=== PATIENT | female | born 1990 | race Caucasian/White ===

== ENCOUNTER → 2018-07-08 20:38 | Outpatient (CLI) | payer OTHER, SELFPAY | PROVIDERS: Visit Provider Nurse Practitioner Family | DX: J02.9 Acute pharyngitis, unspecified (principal) ==

== ENCOUNTER 2020-02-09 05:01 | Emergency (ER) | payer BC, SELFPAY ==
[2020-02-09 05:02] VITALS: BP 105/58; PULSE 61; RESP 16; TEMP 36.7; O2SAT 98; BMI 19.5
[2020-02-09 05:19] LABS: Microscopic, Urine URINE MICROSCOPIC (MICROSCOPIC)
[2020-02-09 05:21] LABS: Appearance,Urine CLEAR (Clear); Bilirubin,Urine Negative (Negative); Blood, Urine 3+ (Negative); Color,Urine YELLOW (Yellow); Glucose,Urine (UA) Negative (Negative); Ketones,Urine Negative (Negative); Leukocyte Esterase,Urine Negative (Negative); Nitrate,Urine Negative (Negative); Protein,Urine Negative (Negative); Urobilinogen,Urine 0.2 EU/dl (0.2)
[2020-02-09 05:26] LABS: Urine Pregnancy, HCG Qual. Negative (Negative)
[2020-02-09 05:57] LABS: Bacteria,Urine 1+ /lpf; WBC,Urine Occasional #/hpf (0-3)
--- NOTE | 2020-02-09 06:14 | HMH.EDHA ---
ED Disposition Clinical Impression: Headache Qualifiers: Headache type: unspecified Headache chronicity pattern: acute headache Intractability: not intractable Qualified Code(s): R51 - Headache Disposition: Home, Self-Care Condition on Discharge: Good Instructions: DI for Headache Additional Instructions: see pcp for follow up Referrals: Kareem Coyne MD [Primary Care Provider] - - Critical Care Critical Care Time: No Attestation: On 02/09/20, the high probability of a clinically significant, sudden or life threatening deterioration of the following system(s) required my full and direct attention, intervention and personal management. The time I documented below is in addition to time spent performing reported procedures but includes the following listed in this critical care notation. Medical Decision Making - Medical Records Medical records reviewed: Yes: I reviewed the patient's medical records. - Ivan Inquiry Pt receiving controlled substance: No Vital Signs: 02/09/20 05:02 Temperature 98.1 F Temperature Source Oral Pulse Rate [Left Radial] 61 Respiratory Rate 16 Blood Pressure [Right Arm] 105/58 L Blood Pressure Mean [Right Arm] 73 Blood Pressure Source [Right Arm] Automatic Cuff Blood Pressure Position [Right Arm] Sitting 02 Sat by Pulse Oximetry 98 Oxygen Delivery Method Room Air - Lab Data Lab results reviewed: Yes: I reviewed the patient's lab results. Lab Results 02/09/20 05:15: Urine Color Yellow, Urine Appearance Clear, Urine pH 6.0, Ur Specific [place] 1.020, Urine Protein Negative, Urine Glucose (UA) Negative, Urine Ketones Negative, Urine Blood 3+, Urine Nitrate Negative, Urine Bilirubin Negative, Urine Urobilinogen 0.2, Ur Leukocyte Esterase Negative, Urine RBC 5-10, Urine WBC Occasional, Urine Bacteria 1+ 02/09/20 05:15: Urine HCG, Qual Negative Orders (Tests/Meds): ED MEDICATIONS Generic Name Dose Route Start Last Admin Trade Name Freq PRN Reason Stop Dose Admin Sodium Chloride 1,000 mls @ 999 mls/hr 02/09/20 05:30 02/09/20 05:50 Sod Chlor 0.9% 1000ml Bag IV 02/09/20 06:30 999 mls/hr .Q1H1M ROGER Administration Discontinued Medications Generic Name Dose Route Start Last Admin Trade Name Freq PRN Reason Stop Dose Admin Diphenhydramine HCl 25 mg 02/09/20 05:25 02/09/20 05:48 Benadryl 50mg/1ml Vial IV 02/09/20 05:26 25 mg ONCE ONE Administration Ketorolac Tromethamine 30 mg 02/09/20 05:25 02/09/20 05:48 Toradol 30mg/Ml Vial IV 02/09/20 05:26 30 mg ONCE ONE Administration Methylprednisolone Sodium Succinate 125 mg 02/09/20 05:25 02/09/20 05:49 Solu-Medrol 125mg/2ml Vial IV 02/09/20 05:26 125 mg ONCE ONE Administration Promethazine HCl 12.5 mg 02/09/20 05:26 02/09/20 05:49 Phenergan 25mg/Ml 1ml Vial IV 02/09/20 05:27 12.5 mg ONCE ONE Administration Sodium Chloride 25 ml 02/09/20 05:26 02/09/20 05:50 Sod Chlor 0.9% 25ml Bag IV 02/09/20 05:27 25 ml ONCE ONE Administration Headache HPI - General Chief Complaint: Neuro Symptoms/Deficit Stated Complaint: Migraine Time Seen by Provider: 02/09/20 05:40 Mode of Arrival: Ambulatory Source of Information: Patient, Medical Record Limitations: No Limitations Description of Symptoms (Recalled from ER Triage Doc. by RN): pt c/o of a migraine for over 24 hours. pt reports a history of migraines but is no longer on migraine medication due to adverse side effects - History of Present Illness HPI Narrative: pt with acute negron with hx of negron MD Complaint: headache Onset (ago): hour(s) Onset description: gradual Location: diffuse Severity: similar to previous episodes Associated symptoms: none Treatments prior to arrival: none - Related Data Previous Rx's Medication Instructions Recorded Azithromycin [Z-Jono 250mg Tab*] 250 mg PO UD DOSE PK #6 tab 08/10/19 Brompheniramine/Pseudoephed/Dm 5 ml PO Q6HP PRN #240 syrup 08/10/19 [Bromfed Dm Coug
[2020-02-09 06:29] VITALS: BP 99/60; PULSE 62; RESP 14; TEMP 36.7; O2SAT 100
== END 2020-02-09 06:32 | disposition home or self-care (01) ==
PROVIDERS: Emergency Provider Emergency Medicine; PCP Internal Medicine Adolescent Medicine
DX: G43.909 Migraine, unspecified, not intractable, without status migrainosus (principal); F17.210 Nicotine dependence, cigarettes, uncomplicated
CPT/HCPCS: 81001; 81025; 96365; 96375; 99282

== ENCOUNTER 2020-09-05 19:08 | Emergency (ER) | payer BC, SELFPAY ==
[2020-09-05 20:12] VITALS: BP 119/81; PULSE 69; RESP 16; TEMP 36.7; O2SAT 100; BMI 20.3
--- NOTE | 2020-09-05 20:19 | HMH.EDUTC ---
[facility] [place] Disposition Clinical Impression: Influenza B, Viral syndrome Disposition: Home, Self-Care Condition on Discharge: Good Instructions: Influenza, DI for Influenza -- Adult Additional Instructions: Drink plenty of fluids. Take tylenol for pain or fever. Return if you begin to have difficulty breathing. Follow up with your regular doctor. GO TO THE ER FOR ANY WORSENING SYMPTOMS Take the tamiflu and other medications as directed. Prescriptions: Ondansetron [Zofran 4mg ODT] 4 mg PO Q8HP PRN #12 tab.rapdis PRN Reason: Nausea Transmission Status: Received by [facility] Oseltamivir Phosphate [Tamiflu 75mg Capsule] 75 mg PO BID #10 cap Transmission Status: Received by [id number] Referrals: Kareem Coyne MD [Primary Care Provider] - Forms: Work/School Release Time of Disposition: 20:38 Medical Decision Making - Medical Records Medical records reviewed: No: I reviewed the patient's medical records. - Ivan Inquiry Pt receiving controlled substance: No Vital Signs: 09/05/20 20:12 09/05/20 20:45 Temperature 98.0 F 98.0 F Temperature Source Oral Oral Pulse Rate 69 Pulse Rate [Right Brachial] 69 Respiratory Rate 16 16 Blood Pressure 119/81 Blood Pressure [Right Arm] 119/81 Blood Pressure Mean [Right Arm] 93 Blood Pressure Source [Right Arm] Automatic Cuff Blood Pressure Position [Right Arm] Sitting 02 Sat by Pulse Oximetry 100 Oxygen Delivery Method Room Air Room Air Orders (Tests/Meds): ED MEDICATIONS Discontinued Medications Generic Name Dose Route Start Last Admin Trade Name Freq PRN Reason Stop Dose Admin Acetaminophen 1,000 mg 09/05/20 20:19 09/05/20 20:26 Acetaminophen 500mg Tab PO 09/05/20 20:20 1,000 mg ONCE ONE Administration Ondansetron HCl 4 mg 09/05/20 20:19 09/05/20 20:26 Ondansetron 4mg Odt SL 09/05/20 20:20 4 mg ONCE ONE Administration Oseltamivir Phosphate 75 mg 09/05/20 21:00 09/05/20 20:55 Oseltamivir 75mg Capsule PO 09/19/20 20:59 75 mg BID ROGER Administration ORDERS Category Date Time Status Covid-19 Nasal PCR Sendout P&C Routine Lab 09/05/20 20:09 Received [facility] [place] HPI - General Stated complaint: Headache; chills; nausea Time Seen by Provider: 09/05/20 20:19 Mode of Arrival: Family Vehicle Source of Information: Patient Limitations: No Limitations Description of Symptoms (Recalled from Triage Doc. by RN): headache,chills, nausea and cough; would like a covid test HEENT Symptoms (Recalled from RN notes): Yes Resp Symptoms (Recalled from RN notes): Yes Skin Symptoms (Recalled from RN notes): No MS Symptoms (Recalled from RN notes): No Functional Status (Recalled from RN notes): wnl - History of Present Illness Provider Complaint: She states that she started having a nagging cough yesterday. This afternoon she began to chill, have nausea, body aches and her cough has got worse. She denies any known exposure to covid or influenza. - Related Data Previous Rx's Medication Instructions Recorded Azithromycin [Z-Jono 250mg Tab*] 250 mg PO UD DOSE PK #6 tab 08/10/19 Brompheniramine/Pseudoephed/Dm 5 ml PO Q6HP PRN #240 syrup 08/10/19 [Bromfed Dm Cough Syrup] Oseltamivir Phosphate [Tamiflu 75 mg PO BID #10 cap 08/10/19 75mg Capsule] predniSONE [Deltasone 10mg tablet] 10 mg PO BID 3 Days #6 tab 08/10/19 valacyclovir 500 mg tablet 500 mg PO DAILY #90 tab 08/23/19 metronidazole 500 mg tablet 500 mg PO BID 5 Days #10 tab 06/16/20 metronidazole 500 mg tablet See Rx Instructions .ROUTE 06/20/20 .COMPLEX #10 tab Ondansetron [Zofran 4mg ODT] 4 mg PO Q8HP PRN #12 tab.rapdis 09/05/20 Oseltamivir Phosphate [Tamiflu 75 mg PO BID #10 cap 09/05/20 75mg Capsule] Allergies Allergy/AdvReac Type Severity Reaction Status Date / Time No Known Allergies Allergy Verified 08/28/18 21:58 - Worker's Comp Is this a Worker's Comp case?: No [facility] History - Hepatitis
[2020-09-05 20:45] VITALS: BP 119/81; PULSE 69; RESP 16; TEMP 36.7; O2SAT 100
[2020-09-05 21:20] LABS: UTC Influenza A Antigen Negative (Negative)
[2020-09-05 21:21] LABS: UTC Influenza B Antigen Positive (Negative)
[2020-09-07 11:31] LABS: Covid-19 Nasal PCR Sendout P&C NEGATIVE
== END 2020-09-05 20:58 | disposition home or self-care (01) ==
PROVIDERS: Emergency Provider Nurse Practitioner Family; PCP Internal Medicine Adolescent Medicine
DX: J10.1 Influenza due to other identified influenza virus with other respiratory manifestations (principal); Z20.822 Contact with and (suspected) exposure to COVID-19; F17.210 Nicotine dependence, cigarettes, uncomplicated
CPT/HCPCS: 87804; 99202; G0463; U0004

== ENCOUNTER 2021-02-10 10:38 | Emergency (ER) | payer BC, SELFPAY ==
[2021-02-10 10:38] VITALS: BP 116/77; PULSE 63; RESP 16; TEMP 36.6; O2SAT 97
--- NOTE | 2021-02-10 11:15 | HMH.EDUTC ---
[facility] [place] Clinical Impression: Migraine headache Qualifiers: Migraine type: without aura Status migrainosus presence: without status migrainosus Intractability: not intractable Qualified Code(s): G43.009 - Migraine without aura, not intractable, without status migrainosus Disposition: Home, Self-Care Condition on Discharge: Good Instructions: DI for Migraine Additional Instructions: Follow up with PCP to discuss preventative meds and abortive meds Prescriptions: Promethazine HCl 12.5 mg PO Q6HP PRN 10 Days #20 tab PRN Reason: Vomiting Transmission Status: Pending to [facility] Ubrogepant [Ubrelvy] 100 mg PO DAILY PRN 30 Days #10 tab PRN Reason: Migraine Headache Transmission Status: Sent to [facility] Referrals: Kareem Coyne MD [Primary Care Provider] - Time of Disposition: 11:32 Medical Decision Making - Ivan Inquiry Pt receiving controlled substance: No Vital Signs: 02/10/21 10:38 Temperature 97.8 F Temperature Source Oral Pulse Rate [Apical] 63 Respiratory Rate 16 Blood Pressure [Right Arm] 116/77 Blood Pressure Mean [Right Arm] 90 Blood Pressure Source [Right Arm] Automatic Cuff Blood Pressure Position [Right Arm] Supine 02 Sat by Pulse Oximetry 97 Oxygen Delivery Method Room Air Orders (Tests/Meds): ED MEDICATIONS Discontinued Medications Generic Name Dose Route Start Last Admin Trade Name Freq PRN Reason Stop Dose Admin Ketorolac Tromethamine 60 mg 02/10/21 11:22 Ketorolac 60mg/2ml Vial IM 02/10/21 11:23 ONCE ONE [facility] [place] - General Stated complaint: migraine Time Seen by Provider: 02/10/21 11:15 Mode of Arrival: Ambulatory Source of Information: Patient Limitations: No Limitations HEENT Symptoms (Recalled from RN notes): No Resp Symptoms (Recalled from RN notes): No Skin Symptoms (Recalled from RN notes): No MS Symptoms (Recalled from RN notes): No Functional Status (Recalled from RN notes): na - History of Present Illness Provider Complaint: Migraine X 2 days. Pain right jew, nausea/vomiting, photophobia. History of frequent migraines. Not currently on prophylaxis. Has tried triptans in the past that didn't help much. Has tried Excedrin, Tylenol and Motrin over the past two days. Onset (ago): day(s) (2) Location: head Relieving factors: none Exacerbating factors: none Associated symptoms: headaches Treatments prior to arrival: NSAID - Related Data Previous Rx's Medication Instructions Recorded Promethazine HCl 12.5 mg PO Q6HP PRN 10 Days #20 tab 02/10/21 Ubrogepant [Ubrelvy] 100 mg PO DAILY PRN 30 Days #10 tab 02/10/21 Allergies Allergy/AdvReac Type Severity Reaction Status Date / Time No Known Allergies Allergy Verified 08/28/18 21:58 - Worker's Comp Is this a Worker's Comp case?: No [facility] History - Hepatitis A Screen Drug use history?: No High risk sexual behaviors?: No History of sexually transmitted infection?: No Currently employed?: No Childcare worker?: No Do you have indoor plumbing?: Yes Do you have electricity?: Yes Attestation statement:: This patient has been screened for Hepatitis A risk factors. I have reviewed the patient's past medical history: No Medical History: Denies:: Cancer, Diabetes Mellitus Type 1, Diabetes Mellitus Type 2, MRSA Other Medical History: Reports: Other (herpes) Amputation: No - Social History Smoking Status: Current every day smoker Tobacco Type: cigarettes # Packs/Day (cigarettes): 0 Alcohol Intake: never Occupational Status: employed Household Members: family Family Hx:: No significant family history ROS Obtained: Yes All systems reviewed & no additional complaints - Constitutional Constitutional: Reports headache(s) - Gastrointestinal Gastrointestingal: Reports: nausea, vomiting Physical Exam - General General appearance: alert, in no apparent distress - Head Head exam: normocephalic - Eye Eye exam: Present: PERRL
[2021-02-10 11:48] VITALS: BP 116/77; PULSE 63; RESP 16; TEMP 36.6; O2SAT 99
== END 2021-02-10 11:49 | disposition home or self-care (01) ==
PROVIDERS: Emergency Provider Physician Assistant; PCP Internal Medicine Adolescent Medicine
DX: G43.009 Migraine without aura, not intractable, without status migrainosus (principal); F17.210 Nicotine dependence, cigarettes, uncomplicated
CPT/HCPCS: 99202; G0463

== ENCOUNTER 2021-07-19 12:39 | Emergency (ER) | payer OTHER, BC, SELFPAY ==
[2021-07-19 12:40] VITALS: BP 105/74; PULSE 66; RESP 20; TEMP 36.4; O2SAT 95; BMI 21.9
[2021-07-19 13:11] LABS: Basophils % 0.6 % (0.1-2.0); Eosinophils # 0.1 K/mm3 (0.0-0.4); Eosinophils % 0.9 % (0.1-12.0); Hemoglobin 14.8 g/dL (12.2-16.2); Lymphocytes # 1.3 K/mm3 (0.7-4.5); Lymphocytes % 20.9 % (10-50); Mean Corpuscular HGB Conc 34.5 g/dL (31.8-35.4); Mean Corpuscular Hemoglobin 32.2 pg (27.0-31.2); Mean Corpuscular Volume 93.4 fl (81-99); Mean Platelet Volume 8.7 fl (7.4-10.4); Monocytes # 0.3 K/mm3 (0.1-1.0); Monocytes % 4.2 % (1.7-9.3); Neutrophils # 4.6 K/mm3 (1.8-7.8); Neutrophils % 73.5 % (37.0-80.0); Platelet Count 209 K/mm3 (142-424); Red Cell Distribution Width 12.7 % (11.5-17.5); White Blood Count 6.2 K/mm3 (4.8-10.8)
[2021-07-19 13:30] VITALS: BP 94/65; PULSE 60; O2SAT 98
--- NOTE | 2021-07-19 13:38 | HMH.EDGENADL ---
ED Disposition Clinical Impression: Migraine Qualifiers: Migraine type: without aura Status migrainosus presence: without status migrainosus Intractability: not intractable Qualified Code(s): G43.009 - Migraine without aura, not intractable, without status migrainosus Disposition: Home, Self-Care Condition on Discharge: Good Instructions: Migraine -- Adult Referrals: Everett Foley MD [Primary Care Provider] - Time of Disposition: 15:18 - Critical Care Critical Care Time: No Attestation: On 07/19/21, the high probability of a clinically significant, sudden or life threatening deterioration of the following system(s) required my full and direct attention, intervention and personal management. The time I documented below is in addition to time spent performing reported procedures but includes the following listed in this critical care notation. Medical Decision Making - Medical Records Medical records reviewed: Yes: I reviewed the patient's medical records. - Ivan Inquiry Pt receiving controlled substance: No Vital Signs: 07/19/21 12:40 Temperature 97.6 F Temperature Source Oral Pulse Rate [Left Radial] 66 Respiratory Rate 20 Blood Pressure [Right Arm] 105/74 L Blood Pressure Mean [Right Arm] 84 Blood Pressure Source [Right Arm] Automatic Cuff Blood Pressure Position [Right Arm] Sitting 02 Sat by Pulse Oximetry 95 Oxygen Delivery Method Room Air - Lab Data Lab Results 07/19/21 12:55: WBC 6.2, RBC 4.60, Hgb 14.8, Hct 43.0, MCV 93.4, MCH 32.2 H, MCHC 34.5, RDW 12.7, Plt Count 209, MPV 8.7, Neut % (Auto) 73.5, Lymph % (Auto) 20.9, [place] % (Auto) 4.2, Eos % (Auto) 0.9, Baso % (Auto) 0.6, Neut # (Auto) 4.6, Lymph # (Auto) 1.3, [place] # (Auto) 0.3, Eos # (Auto) 0.1, Baso # (Auto) 0.0 Result diagrams: 07/19/21 12:55 Orders (Tests/Meds): ED MEDICATIONS Generic Name Dose Route Start Last Admin Trade Name Freq PRN Reason Stop Dose Admin Sodium Chloride 1,000 mls @ 999 mls/hr 07/19/21 13:15 07/19/21 13:32 Sod Chlor 0.9% 1000ml Bag IV 07/19/21 14:15 999 mls/hr .Q1H1M ROGER Administration Discontinued Medications Generic Name Dose Route Start Last Admin Trade Name Kannan PRN Reason Stop Dose Admin Diphenhydramine HCl 25 mg 07/19/21 13:04 07/19/21 13:31 Diphenhydramine 50mg/Ml Vial IV 07/19/21 13:05 25 mg ONCE ONE Administration Ketorolac Tromethamine 30 mg 07/19/21 13:04 07/19/21 13:32 Ketorolac 30mg/Ml Vial IV 07/19/21 13:05 30 mg ONCE ONE Administration Metoclopramide HCl 10 mg 07/19/21 13:04 07/19/21 13:32 Metoclopramide Hcl 10mg/2ml Vial IV 07/19/21 13:05 10 mg ONCE ONE Administration Prochlorperazine Edisylate 10 mg 07/19/21 13:04 07/19/21 13:32 Prochlorperazine 10mg/2ml Vial IV 07/19/21 13:05 10 mg ONCE ONE Administration Medical Decision Narrative: 30-year-old female presents to the emergency department with chief complaint of migraine headache. The history of frequent migraines, and normally responds to her abortive medication at home, but did not get any relief today. Patient states that this headache is classic for her usual migraines and she normally gets relief with a migraine cocktail in the emergency department. On arrival, she is afebrile and hemodynamically stable and appears uncomfortable and in tears and is having sensitivity to the lights and noises of the emergency department. Patient will have a CBC drawn, and will be treated with a 1 L LR bolus, Toradol, Reglan, and Benadryl while in the emergency department. On reevaluation, CBC is unremarkable, no anemia or leukocytosis. Patient had marked improvement after administration of medications and approximately 2 hours of rest in the emergency department. At this time she is ready to go home. Patient was discharged in stable condition with follow-up with her primary care physician, and she has been on this plan. General Adult HPI - General Chief complaint: Headache
[2021-07-19 15:30] VITALS: BP 94/65; PULSE 60; RESP 18; TEMP 36.4; O2SAT 98
== END 2021-07-19 15:31 | disposition home or self-care (01) ==
PROVIDERS: Emergency Provider Emergency Medicine; PCP Internal Medicine Adolescent Medicine
DX: G43.009 Migraine without aura, not intractable, without status migrainosus (principal); F17.210 Nicotine dependence, cigarettes, uncomplicated
CPT/HCPCS: 85025; 96365; 96375; 99282

== ENCOUNTER 2021-10-20 09:06 | Emergency (ER) | payer BC, SELFPAY ==
[2021-10-20 09:26] VITALS: BP 111/73; PULSE 57; RESP 14; TEMP 36.5; O2SAT 97; BMI 21.1
--- NOTE | 2021-10-20 10:29 | HMH.EDUTC ---
[facility] [place] Disposition Clinical Impression: Migraine Qualifiers: Migraine type: unspecified Status migrainosus presence: without status migrainosus Intractability: not intractable Qualified Code(s): G43.909 - Migraine, unspecified, not intractable, without status migrainosus Disposition: Home, Self-Care Condition on Discharge: Good Instructions: DI for Migraine Additional Instructions: Drink plenty of fluids. Take your normal regimen for migraines. Do not do that until later this evening or preferrably tomorrow since you had the shots here though. Take the medications as directed. Follow up with your regular doctor. GO TO THE ER FOR ANY WORSENING SYMPTOMS Prescriptions: Ibuprofen [Ibuprofen 800mg Tablet] 800 mg PO Q8HP PRN #30 tab PRN Reason: Moderate Pain Transmission Status: [facility] Promethazine HCl [Phenergan 25mg tab] 25 mg PO Q6H PRN #20 tab PRN Reason: Nausea And Vomiting Transmission Status: [facility] Referrals: Everett Foley MD [Primary Care Provider] - Time of Disposition: 11:20 Medical Decision Making - Medical Records Medical records reviewed: No: I reviewed the patient's medical records. - Ivan Inquiry Pt receiving controlled substance: No Vital Signs: 10/20/21 09:26 10/20/21 11:39 Temperature 97.7 F 97.7 F Temperature Source Oral Pulse Rate 57 L Pulse Rate [Left] 57 L Respiratory Rate 14 14 Blood Pressure 111/73 Blood Pressure [Right Arm] 111/73 Blood Pressure Mean [Right Arm] 85 02 Sat by Pulse Oximetry 97 Orders (Tests/Meds): ED MEDICATIONS Discontinued Medications Generic Name Dose Route Start Last Admin Trade Name Freq PRN Reason Stop Dose Admin Ketorolac Tromethamine 60 mg 10/20/21 10:29 10/20/21 10:49 Ketorolac 60mg/2ml Vial IM 10/20/21 10:30 60 mg ONCE ONE Administration Methylprednisolone Sodium Succinate 125 mg 10/20/21 10:29 10/20/21 10:48 Methylprednisolone Sod Succ 125mg Vial IM 10/20/21 10:30 125 mg ONCE ONE Administration Promethazine HCl 25 mg 10/20/21 10:30 10/20/21 10:48 Promethazine Hcl 25mg/Ml 1ml Vial IM 10/20/21 10:31 25 mg ONCE ONE Administration [facility] [place] HPI - General Stated complaint: migraine Time Seen by Provider: 10/20/21 09:45 Mode of Arrival: Ambulatory Source of Information: Patient Limitations: No Limitations Description of Symptoms (Recalled from Triage Doc. by RN): pt c/o a migraine, n/v, and photophobia. pt has a hx of migraines and says this feels the same. pt has taken her nertec without any relief. ongoing since yesterday am. HEENT Symptoms (Recalled from RN notes): Yes Resp Symptoms (Recalled from RN notes): No Skin Symptoms (Recalled from RN notes): No MS Symptoms (Recalled from RN notes): No Functional Status (Recalled from RN notes): wnl - History of Present Illness Provider Complaint: She c/o migraine headache since yesterday. - Related Data Previous Rx's Medication Instructions Recorded Promethazine HCl 12.5 mg PO Q6HP PRN 10 Days #20 tab 02/10/21 Ubrogepant [Ubrelvy] 100 mg PO DAILY PRN 30 Days #10 tab 02/10/21 valacyclovir 500 mg tablet 500 mg PO DAILY #30 tab 03/20/21 Ibuprofen [Ibuprofen 800mg 800 mg PO Q8HP PRN #30 tab 10/20/21 Tablet] Promethazine HCl [Phenergan 25mg 25 mg PO Q6H PRN #20 tab 10/20/21 tab] Allergies Allergy/AdvReac Type Severity Reaction Status Date / Time No Known Allergies Allergy Verified 08/28/18 21:58 - Worker's Comp Is this a Worker's Comp case?: No [facility] History - Hepatitis A Screen Drug use history?: No High risk sexual behaviors?: No History of sexually transmitted infection?: No Currently employed?: No Childcare worker?: No Do you have indoor plumbing?: Yes Do you have electricity?: Yes Attestation statement:: This patient has been screened for Hepatitis A risk factors. I have reviewed the patient's past medical history: Yes Medical Hi
[2021-10-20 11:39] VITALS: BP 111/73; PULSE 57; RESP 14; TEMP 36.5
== END 2021-10-20 11:39 | disposition home or self-care (01) ==
PROVIDERS: Emergency Provider Nurse Practitioner Family; PCP Internal Medicine Adolescent Medicine
DX: G43.909 Migraine, unspecified, not intractable, without status migrainosus (principal); F17.210 Nicotine dependence, cigarettes, uncomplicated
CPT/HCPCS: 99202; G0463

== ENCOUNTER 2021-11-04 17:36 | Emergency (ER) | payer BC, SELFPAY ==
[2021-11-04 17:37] VITALS: BP 132/86; PULSE 64; RESP 20; TEMP 36.7; O2SAT 100; BMI 21.1
[2021-11-04 18:18] LABS: Basophils # 0.1 K/mm3 (0-0.2); Basophils % 1.4 % (0.1-2.0); Eosinophils # 0.1 K/mm3 (0.0-0.4); Eosinophils % 1.4 % (0.1-12.0); Hemoglobin 13.5 g/dL (12.2-16.2); Lymphocytes # 1.6 K/mm3 (0.7-4.5); Lymphocytes % 21.5 % (10-50); Mean Corpuscular HGB Conc 33.7 g/dL (31.8-35.4); Mean Corpuscular Hemoglobin 31.7 pg (27.0-31.2); Mean Platelet Volume 9.1 fl (7.4-10.4); Monocytes # 0.4 K/mm3 (0.1-1.0); Monocytes % 5.8 % (1.7-9.3); Neutrophils # 5.2 K/mm3 (1.8-7.8); Neutrophils % 69.9 % (37.0-80.0); Platelet Count 203 K/mm3 (142-424); Red Blood Count 4.26 M/mm3 (4.20-5.40); Red Cell Distribution Width 12.9 % (11.5-17.5); White Blood Count 7.5 K/mm3 (4.8-10.8)
[2021-11-04 18:19] LABS: Chloride 104 mmol/L (98-107); Potassium 3.9 mmoL/L (3.5-5.1); Sodium 133 mmol/L (136-145)
[2021-11-04 18:21] LABS: HCG Qualitative, Serum Negative (Negative)
[2021-11-04 18:22] LABS: Anion Gap 8.9 mEq/L (5-15); Blood Urea Nitrogen 11 mg/dl (7-17); Calcium 8.2 mg/dl (8.4-10.2); Carbon Dioxide 24 mmol/L (22.0-30.0); Creatinine Clearance Estimated 131 mL/min (50-200); Estimated Glomerular Filt Rate 117 ml/min (>60); GFR (African American) 141 ML/MIN (>60); Glucose 90 mg/dl (74-100)
--- NOTE | 2021-11-04 18:49 | HMH.EDGENADL ---
ED Disposition Clinical Impression: Headache Disposition: Home, Self-Care Condition on Discharge: Good Instructions: DI for Migraine Referrals: Everett Foley MD [Primary Care Provider] - - Critical Care Critical Care Time: No Attestation: On 11/04/21, the high probability of a clinically significant, sudden or life threatening deterioration of the following system(s) required my full and direct attention, intervention and personal management. The time I documented below is in addition to time spent performing reported procedures but includes the following listed in this critical care notation. Medical Decision Making - Ivan Inquiry Pt receiving controlled substance: No Vital Signs: 11/04/21 17:37 Temperature 98.0 F Temperature Source Oral Pulse Rate [Right Radial] 64 Respiratory Rate 20 Blood Pressure [Right Arm] 132/86 Blood Pressure Mean [Right Arm] 101 Blood Pressure Source [Right Arm] Automatic Cuff Blood Pressure Position [Right Arm] Sitting 02 Sat by Pulse Oximetry 100 Oxygen Delivery Method Room Air - Lab Data Lab Results 11/04/21 17:55: WBC 7.5, RBC 4.26, Hgb 13.5, Hct 40.0, MCV 94.0, MCH 31.7 H, MCHC 33.7, RDW 12.9, Plt Count 203, MPV 9.1, Neut % (Auto) 69.9, Lymph % (Auto) 21.5, [place] % (Auto) 5.8, Eos % (Auto) 1.4, Baso % (Auto) 1.4, Neut # (Auto) 5.2, Lymph # (Auto) 1.6, [place] # (Auto) 0.4, Eos # (Auto) 0.1, Baso # (Auto) 0.1 11/04/21 17:55: Sodium 133 L, Potassium 3.9, Chloride 104, Carbon Dioxide 24, Anion Gap 8.9, BUN 11, Creatinine 0.60, Estimated Creat Clear 131, Estimated GFR 117, Est GFR ( Amer) 141, Glucose 90, Calcium 8.2 L 11/04/21 17:55: Serum HCG, Qual Negative Result diagrams: 11/04/21 17:55 11/04/21 17:55 Orders (Tests/Meds): ED MEDICATIONS Generic Name Dose Route Start Last Admin Trade Name Freq PRN Reason Stop Dose Admin Lactated Ringer's 1,000 mls @ 999 mls/hr 11/04/21 18:15 Lactated Ringer's 1000 Ml Bag IV 11/04/21 19:15 .Q1H1M ROGER Discontinued Medications Generic Name Dose Route Start Last Admin Trade Name Kannan PRKasey Reason Stop Dose Admin Dexamethasone Sodium Phosphate 8 mg 11/04/21 18:11 11/04/21 18:39 Dexamethasone 4mg/Ml 1ml Vial IV 11/04/21 18:12 8 mg ONCE ONE Administration Diphenhydramine HCl 25 mg 11/04/21 18:11 11/04/21 18:39 Diphenhydramine 50mg/Ml Vial IV 11/04/21 18:12 25 mg ONCE ONE Administration Magnesium Sulfate 1 gm/ Sodium 52 mls @ 100 mls/hr 11/04/21 18:11 11/04/21 18:39 Chloride IV 11/04/21 18:42 100 mls/hr ONCE ONE Administration Ketorolac Tromethamine 15 mg 11/04/21 18:11 11/04/21 18:39 Ketorolac 30mg/Ml Vial IV 11/04/21 18:12 15 mg ONCE ONE Administration Ondansetron HCl 4 mg 11/04/21 18:11 11/04/21 18:39 Ondansetron 4mg/2ml Vial IV 11/04/21 18:12 4 mg ONCE ONE Administration Medical Decision Narrative: DDx includes but not limited to migraine headache, tension type headache, dehydration, electrolyte abnormality. HDS, distress 2/2 headache but distractable and cooperative with exam and interview, GCS 15, moving bilateral arms and legs spontaneously and with normal gross sensation and strength. Labs including cbc, cmp, test were without acute and actionable findings. Given IV migraine cocktail here in the ED, and patient states headache is significantly improved on reassessment. She states she can follow up with PCP within a few days and will call pharmacy tomorrow regarding her chronic migraine medication. She remains HDS, GCS 15. Given ED return precautions. General Adult HPI - General Chief complaint: Headache Stated complaint: migraine Time Seen by Provider: 11/04/21 18:05 Mode of Arrival: Ambulatory Source of Information: Patient Limitations: No Limitations Description of Symptoms (Recalled from ER Triage Doc. by RN): Pt c/o migraine x3 days. Advises she has been out of her medication (Neurtec). States that pain is no different than her typ
[2021-11-04 19:48] VITALS: BP 125/70; PULSE 79; RESP 19; TEMP 36.8; O2SAT 98
== END 2021-11-04 20:11 | disposition home or self-care (01) ==
PROVIDERS: Emergency Provider Student in an Organized Health Care Education/Training Program; PCP Internal Medicine Adolescent Medicine
DX: G43.019 Migraine without aura, intractable, without status migrainosus (principal); Z79.899 Other long term (current) drug therapy; F17.210 Nicotine dependence, cigarettes, uncomplicated
CPT/HCPCS: 80048; 84703; 85025; 96365; 96375; 99284; J2405

== ENCOUNTER 2022-06-19 07:04 | Emergency (ER) | payer BC, SELFPAY ==
[2022-06-19 07:05] VITALS: BP 116/82; PULSE 87; RESP 18; TEMP 36.7; O2SAT 99; BMI 20.3
--- NOTE | 2022-06-19 07:14 | PC.NURSE ---
DR. CHEEMA AT BEDSIDE
--- NOTE | 2022-06-19 07:18 | HMH.EDURI ---
Discharge Plan Disposition Patient Disposition: Home, Self-Care Prescriptions Prescriptions: New prednisone [prednisone] 20 mg tablet 20 mg PO BID Qty: 10 0RF cephalexin [cephalexin] 500 mg capsule 500 mg PO TID Qty: 30 0RF No Action valacyclovir 500 mg tablet 500 mg PO DAILY Qty: 30 11RF metronidazole 500 mg tablet See Rx Instructions .ROUTE .COMPLEX Qty: 14 2RF Dose Instruction: Take 1 tablet by mouth twice daily Rx Instructions: Take 1 tablet by mouth twice daily ubrogepant 100 MG tablet 100 mg PO DAILY PRN (Reason: Migraine Headache) 30 Days Qty: 10 0RF promethazine 12.5 MG tablet 12.5 mg PO Q6HP PRN (Reason: Vomiting) 10 Days Qty: 20 0RF ibuprofen 800 MG tablet 800 mg PO Q8HP PRN (Reason: Moderate Pain) Qty: 30 0RF promethazine 25 MG tablet 25 mg PO Q6H PRN (Reason: Nausea And Vomiting) Qty: 20 0RF Referrals Follow up/Referrals: Kareem Coyne MD [Primary Care Provider] - See instructions Clinical Impressions Clinical Impression: Pharyngitis, Sinusitis Instructions Patient Instructions: DI for Sinusitis Discharge ED Provider: Riccardo David URI/Sore Throat HPI General Chief Complaint: Upper Respiratory Infection Stated Complaint: Sore throat, sinus pressure Time Seen by Provider: 06/19/22 07:18 Mode of Arrival: Ambulatory Source of Information: Patient and Medical Record Limitations: No Limitations Description of Symptoms (Recalled from ER Triage Doc. by RN): PT REPORTS SORE THROAT AND SINUS PRESSURE SINCE FRIDAY History of Present Illness HPI Narrative: ear and sinus pressure over the last few days Complaint: sore throat, nasal congestion and sinus pain Onset (ago): day(s) Duration: intermittent Severity: moderate Able to tolerate fluids by mouth: Yes Associated symptoms: headache Treatments prior to arrival: none Related Data Previous Rx's Medication Instructions Recorded promethazine 12.5 mg tablet 12.5 mg PO Q6HP PRN Vomiting 10 02/10/21 days #20 tabs ubrogepant 100 mg tablet 100 mg PO DAILY PRN Migraine 02/10/21 Headache 30 days #10 tabs valacyclovir 500 mg tablet 500 mg PO DAILY #30 tabs 03/20/21 ibuprofen 800 mg tablet 800 mg PO Q8HP PRN Moderate Pain 10/20/21 #30 tabs promethazine 25 mg tablet 25 mg PO Q6H PRN Nausea And 10/20/21 Vomiting #20 tabs metronidazole 500 mg tablet See Rx Instructions .Route 03/18/22 .COMPLEX #14 tabs cephalexin 500 mg capsule 500 mg PO TID #30 caps 06/19/22 prednisone 20 mg tablet 20 mg PO BID #10 tabs 06/19/22 Allergies Allergy/AdvReac Type Severity Reaction Status Date / Time sumatriptan Allergy Verified 06/19/22 07:19 [facility] Medical History (Updated 06/19/22 @ 08:08 by Riccardo David MD) Migraine Family History (Updated 06/19/22 @ 07:18 by Zina Samuel RN) No significant family history Social History (Updated 06/19/22 @ 07:18 by Zina Samuel RN) Smoking Status: Current every day smoker tobacco type: cigarettes packs per day: 0 alcohol intake: never current occupational status: employed Travel in the last 8 weeks: None household members: family ROS Obtained: Yes All systems reviewed & no additional complaints except as documented Constitutional Constitutional: Denies fever(s) and Reports headache(s) Eyes Eyes: Denies diplopia ENT Ears, Nose, Mouth, and Throat: Reports otalgia and Reports headache(s) Neurologic Neurologic: Reports headache(s) Physical Exam General General appearance: alert Head Head exam: normocephalic Eye Eye exam: Present PERRL and EOMI ENT ENT exam: Present mucous membranes moist Expanded ENT Exam TM/Canal exam: Bilateral TM: effusion Throat exam: Present tonsillar erythema Neck Neck exam: Present full ROM and trachea midline; Absent tenderness Respiratory Respiratory exam: Absent respiratory distress Cardiovascular Cardiovascular exam: Present regular rate Abdominal Exam Abdominal exam: Present
[2022-06-19 07:25] LABS: Coronavirus 19, PCR Not Detected (NotDetected); Influenza A, PCR Not Detected (NotDetected); Influenza B, PCR Not Detected (NotDetected)
--- NOTE | 2022-06-19 07:30 | PC.NURSE ---
PLAN OF CARE DISCUSSED, IV STARTED AND BLOOD COLLECTED PT TOLERATED WELL. NO NEEDS AT THIS TIME
[2022-06-19 07:37] LABS: Strep Scrn Group A (Rapid) Negative (Negative)
[2022-06-19 07:43] LABS: Basophils # 0.1 K/mm3 (0-0.2); Basophils % 0.5 % (0.1-2.0); Eosinophils # 0.2 K/mm3 (0.0-0.4); Eosinophils % 1.8 % (0.1-12.0); Hematocrit 44.1 % (37.0-47.0); Hemoglobin 14.9 g/dL (12.2-16.2); Lymphocytes # 1.4 K/mm3 (0.7-4.5); Lymphocytes % 14.4 % (10-50); Mean Corpuscular HGB Conc 33.7 g/dL (31.8-35.4); Mean Corpuscular Hemoglobin 31.5 pg (27.0-31.2); Mean Corpuscular Volume 93.5 fl (81-99); Mean Platelet Volume 9.1 fl (7.4-10.4); Monocytes # 0.5 K/mm3 (0.1-1.0); Monocytes % 5.1 % (1.7-9.3); Neutrophils # 7.4 K/mm3 (1.8-7.8); Neutrophils % 78.2 % (37.0-80.0); Platelet Count 220 K/mm3 (142-424); Red Blood Count 4.72 M/mm3 (4.20-5.40); White Blood Count 9.4 K/mm3 (4.8-10.8)
--- NOTE | 2022-06-19 07:56 | PC.NURSE ---
checked on pt at this time, gave pt warm blanket. Pt states no other needs, will continue to monitor
[2022-06-19 08:00] VITALS: BP 94/67; PULSE 71; RESP 16; O2SAT 97
--- NOTE | 2022-06-19 08:20 | PC.NURSE ---
pt medicated per MAR, lights turned off in room for comfort. Pt states no needs at this time, will continue to monitor
[2022-06-19 08:23] LABS: Chloride 105 mmol/L (98-107); Potassium 4.3 mmoL/L (3.5-5.1); Sodium 138 mmol/L (136-145)
[2022-06-19 08:26] LABS: Alanine Aminotransferase 15 U/L (12-78); Albumin Level 4.6 g/dl (3.5-5.0); Albumin/Globulin Ratio 1.5 (1.1-1.8); Alkaline Phosphatase 48 U/L (38-126); Anion Gap 14.3 mEq/L (5-15); Aspartate Amino Transferase 22 U/L (14-36); Bilirubin,Total 0.6 mg/dl (0.2-1.3); Blood Urea Nitrogen 10 mg/dl (7-17); Carbon Dioxide 23 mmol/L (22.0-30.0); Creatinine Clearance Estimated 126 mL/min (50-200); Estimated Glomerular Filt Rate 117 ml/min (>60); GFR (African American) 141 ML/MIN (>60); Globulin 3.1 g/dL (1.3-3.2); Glucose 92 mg/dl (74-100); Total Protein,Serum 7.7 g/dl (6.3-8.2)
[2022-06-19 08:27] LABS: Calcium 8.9 mg/dl (8.4-10.2)
--- NOTE | 2022-06-19 08:54 | PC.NURSE ---
ABX COMPLETE, PT DENIES NEEDS
[2022-06-19 09:00] VITALS: BP 98/65; PULSE 72; RESP 16; TEMP 36.7; O2SAT 99
== END 2022-06-19 09:05 | disposition home or self-care (01) ==
PROVIDERS: Emergency Provider Emergency Medicine; PCP Internal Medicine Adolescent Medicine
DX: J32.9 Chronic sinusitis, unspecified (principal); J02.9 Acute pharyngitis, unspecified
CPT/HCPCS: 80053; 85025; 87430; 96365; 96367; 96375; 99284; C9803; J0696; U0003; U0005

== ENCOUNTER 2022-07-17 03:24 | Emergency (ER) | payer BC, SELFPAY ==
[2022-07-17 03:25] VITALS: PULSE 94; RESP 18; TEMP 37.5; O2SAT 95; BMI 20.3
[2022-07-17 03:38] VITALS: BMI 20.3
--- NOTE | 2022-07-17 03:39 | XR_ITS ---
PROCEDURE INFORMATION: Exam: XR Chest Exam date and time: 07/17/2022 3:36 AM Age: 31 years old Clinical indication: Cough and fever; Additional info: Cough, fever TECHNIQUE: Imaging protocol: Radiologic exam of the chest. Views: 2 views. COMPARISON: CT ABDOMEN PELVIS W CON 04/06/2019 12:10 PM FINDINGS: Lungs: Increased opacity is seen in the right middle lobe Pleural spaces: Unremarkable. No pleural effusion. No pneumothorax. Heart/Mediastinum: Unremarkable. No cardiomegaly. Bones/joints: Unremarkable. IMPRESSION: Airspace disease right middle lobe may represent early infiltrate
[2022-07-17 03:48] LABS: Influenza B, PCR Not Detected (NotDetected)
[2022-07-17 03:53] LABS: Basophils % 0.4 % (0.1-2.0); Chloride 108 mmol/L (98-107); Hematocrit 41.3 % (37.0-47.0); Hemoglobin 13.9 g/dL (12.2-16.2); Lymphocytes # 0.2 K/mm3 (0.7-4.5); Lymphocytes % 5.5 % (10-50); Mean Corpuscular HGB Conc 33.7 g/dL (31.8-35.4); Mean Corpuscular Volume 92.1 fl (81-99); Mean Platelet Volume 8.6 fl (7.4-10.4); Monocytes # 0.2 K/mm3 (0.1-1.0); Monocytes % 7.2 % (1.7-9.3); Neutrophils # 2.8 K/mm3 (1.8-7.8); Neutrophils % 85.9 % (37.0-80.0); Platelet Count 169 K/mm3 (142-424); Potassium 3.7 mmoL/L (3.5-5.1); Red Blood Count 4.48 M/mm3 (4.20-5.40); Red Cell Distribution Width 12.9 % (11.5-17.5); Sodium 133 mmol/L (136-145); White Blood Count 3.3 K/mm3 (4.8-10.8)
[2022-07-17 03:56] LABS: Alanine Aminotransferase 16 U/L (12-78); Albumin Level 4.2 g/dl (3.5-5.0); Albumin/Globulin Ratio 1.6 (1.1-1.8); Alkaline Phosphatase 54 U/L (38-126); Anion Gap 9.7 mEq/L (5-15); Aspartate Amino Transferase 20 U/L (14-36); Bilirubin,Total 0.6 mg/dl (0.2-1.3); Blood Urea Nitrogen 8 mg/dl (7-17); Carbon Dioxide 19 mmol/L (22.0-30.0); Creatinine Clearance Estimated 152 mL/min (50-200); Estimated Glomerular Filt Rate 144 ml/min (>60); GFR (African American) 174 ML/MIN (>60); Globulin 2.7 g/dL (1.3-3.2); Total Protein,Serum 6.9 g/dl (6.3-8.2)
[2022-07-17 03:57] LABS: Calcium 8.8 mg/dl (8.4-10.2); Glucose 95 mg/dl (74-100)
[2022-07-17 04:02] LABS: MANUAL DIFFERENTIAL MANUAL DIFFERENTIAL (MANUAL DIFF)
[2022-07-17 04:07] LABS: HCG Qualitative, Serum Negative (Negative)
[2022-07-17 04:44] LABS: Coronavirus 19, PCR Detected (NotDetected); Influenza A, PCR Detected (NotDetected)
--- NOTE | 2022-07-17 04:58 | HMH.EDHA ---
Discharge Plan Disposition Patient Disposition: Home, Self-Care Prescriptions Prescriptions: New azithromycin [azithromycin] 250 mg tablet 250 mg PO DIRECTED Qty: 6 0RF Rx Instructions: Take two (2) tablets on day #1, then one (1) tablet day #2 thru #5 oseltamivir [Tamiflu] 75 mg capsule 75 mg PO BID 5 Days Qty: 10 0RF No Action ubrogepant 100 MG tablet 100 mg PO DAILY PRN (Reason: Migraine Headache) 30 Days Qty: 10 0RF Referrals Follow up/Referrals: Kareem Coyne MD [Primary Care Provider] - See instructions Clinical Impressions Clinical Impression: Influenza A, COVID-19 Stand Alone Forms Stand Alone Forms: Work/School Release Instructions Patient Instructions: DI for Headache, DI for Influenza -- Adult, DI for COVID-19 (Suspected or Confirmed ) Discharge ED Provider: Riccardo David Headache HPI General Chief Complaint: Headache Stated Complaint: Aching, vomiting, migraine Time Seen by Provider: 07/17/22 04:58 Mode of Arrival: Ambulatory Source of Information: Patient and Medical Record Limitations: No Limitations Description of Symptoms (Recalled from ER Triage Doc. by RN): Pt c/o cough for two days which worsened today. C/O body aches, fever, chills and vomiting. History of Present Illness HPI Narrative: achey and headache and cough over the last 2 days Complaint: headache Onset (ago): day(s) Onset description: gradual Location: diffuse Severity: moderate Associated symptoms: fever Treatments prior to arrival: acetaminophen Related Data Previous Rx's Medication Instructions Recorded ubrogepant 100 mg tablet 100 mg PO DAILY PRN Migraine 02/10/21 Headache 30 days #10 tabs azithromycin 250 mg tablet 250 mg PO DIRECTED #6 tabs 07/17/22 oseltamivir 75 mg capsule (Tamiflu) 75 mg PO BID 5 days #10 caps 07/17/22 Allergies Allergy/AdvReac Type Severity Reaction Status Date / Time sumatriptan Allergy Verified 06/19/22 07:19 [facility] History Hepatitis A Screen Attestation statement:: This patient has been screened for Hepatitis A risk factors. I have reviewed the patient's past medical history: Yes Medical History: Denies: Cancer, Diabetes Mellitus Type 1, Diabetes Mellitus Type 2 or MRSA Other Medical History: Reports Other (herpes) Amputation: No Social History Smoking Status: Current every day smoker Tobacco Type: cigarettes # Packs/Day (cigarettes): 0 Alcohol Intake: never Occupational Status: employed Household Members: family Family Hx:: No significant family history PFSH PFSH Medical History (Updated 07/17/22 @ 05:13 by Riccardo David MD) Migraine Family History (Updated 06/19/22 @ 07:18 by Zina Samuel RN) No significant family history Social History (Updated 06/19/22 @ 08:08 by Riccardo David MD) Smoking Status: Current every day smoker tobacco type: cigarettes packs per day: 0 alcohol intake: never current occupational status: employed Travel in the last 8 weeks: None household members: family ROS Obtained: Yes All systems reviewed & no additional complaints except as documented Physical Exam General General appearance: alert Head Head exam: normocephalic Eye Eye exam: Present PERRL and EOMI ENT ENT exam: Present mucous membranes moist Neck Neck exam: Present trachea midline; Absent meningismus Respiratory Respiratory exam: Present normal lung sounds bilaterally; Absent respiratory distress Cardiovascular Cardiovascular exam: Present regular rate; Absent systolic murmur Abdominal Exam Abdominal exam: Present soft Extremities Exam Extremities exam: Present full ROM Neurological Exam Neurological exam: Present alert, oriented X3 and CN II-XII intact; Absent motor sensory deficit Psychiatric Psychiatric exam: Present normal affect Skin Skin exam: Absent rash Medical Decision Making Medical Records Medical records reviewed: Yes I reviewed the patient's medical records. Ivan Inquiry Pt receivi
[2022-07-17 05:13] VITALS: BP 108/62; PULSE 68; RESP 18; TEMP 37; O2SAT 99
[2022-07-17 05:54] LABS: Lymphocytes % 9 % (10-50); Monocytes % 4 % (2-9); Neutrophils % 86 % (42-76); Platelet Estimate Normal; RBC Morphology Normal; Total Cells Counted 100
== END 2022-07-17 05:15 | disposition home or self-care (01) ==
PROVIDERS: Emergency Provider Emergency Medicine; PCP Internal Medicine Adolescent Medicine
DX: U07.1 COVID-19 (principal); J10.1 Influenza due to other identified influenza virus with other respiratory manifestations
CPT/HCPCS: 71046; 80053; 84703; 85007; 85025; 96365; 96375; 99284; C9803; J2405; U0003; U0005

== ENCOUNTER 2022-07-17 16:20 | Emergency (ER) | payer BC, SELFPAY ==
[2022-07-17 16:22] VITALS: BP 106/73; PULSE 89; RESP 18; TEMP 37.1; O2SAT 98; BMI 20.3
--- NOTE | 2022-07-17 16:46 | HMH.EDGENADL ---
Discharge Plan Disposition Patient Disposition: Home, Self-Care Condition: Good Prescriptions Prescriptions: No Action ubrogepant 100 MG tablet 100 mg PO DAILY PRN (Reason: Migraine Headache) 30 Days Qty: 10 0RF azithromycin [azithromycin] 250 mg tablet 250 mg PO DIRECTED Qty: 6 0RF Rx Instructions: Take two (2) tablets on day #1, then one (1) tablet day #2 thru #5 oseltamivir [Tamiflu] 75 mg capsule 75 mg PO BID 5 Days Qty: 10 0RF Referrals Follow up/Referrals: Kareem Coyne MD [Primary Care Provider] - See instructions Activity Restrictions/Add. Instructions Additional Instructions/Restrictions: Rest and drink plenty of fluids. Clinical Impressions Clinical Impression: Migraine, Influenza A, COVID-19 Discharge ED Provider: Aung Mandujano General Adult HPI General Chief complaint: Upper Respiratory Infection Stated complaint: positive for flu and covid, cough, vomiting, MACIAS Time Seen by Provider: 07/17/22 16:37 Mode of Arrival: Ambulatory Source of Information: Patient Limitations: No Limitations Description of Symptoms (Recalled from ER Triage Doc. by RN): c/o MACIAS, vomiting, aching and freezing, states she was here this am and tested positive for covid and flu but states the symptoms are getting worse and she cant get any rest History of Present Illness HPI narrative: Patient presents with headache chills body aches and vomiting started earlier today. She was seen here earlier this morning and diagnosed with both COVID and flu. Symptoms described as severe and headache is worse with bright lights and loud noises and she does have a history of migraines. The states he gave her migraine medication earlier today. She denies neck discomfort at this time. Related Data Previous Rx's Medication Instructions Recorded ubrogepant 100 mg tablet 100 mg PO DAILY PRN Migraine 02/10/21 Headache 30 days #10 tabs azithromycin 250 mg tablet 250 mg PO DIRECTED #6 tabs 07/17/22 oseltamivir 75 mg capsule (Tamiflu) 75 mg PO BID 5 days #10 caps 07/17/22 Allergies Allergy/AdvReac Type Severity Reaction Status Date / Time sumatriptan Allergy Verified 06/19/22 07:19 [facility] Medical History Migraine Family History Other No significant family history Social History Smoking Status: Current every day smoker tobacco type: cigarettes packs per day: 0 alcohol intake: never current occupational status: employed Travel in the last 8 weeks: None household members: family ROS Obtained: Yes All systems reviewed & no additional complaints except as documented Physical Exam General General appearance: alert and in no apparent distress Head Head exam: atraumatic Eye Eye exam: Present normal appearance ENT ENT exam: Present normal exam Neck Neck exam: Present normal inspection; Absent meningismus Chest Chest inspection: Present normal inspection Respiratory Respiratory exam: Present normal lung sounds bilaterally; Absent respiratory distress Cardiovascular Cardiovascular exam: Present regular rate and normal rhythm Abdominal Exam Abdominal exam: Present soft; Absent tenderness External exam: Present normal external exam Extremities Exam Extremities exam: Present normal inspection Back Exam Back exam: Present normal inspection Neurological Exam Neurological exam: Present alert and oriented X3 Psychiatric Psychiatric exam: Present normal affect Skin Skin exam: Present warm and dry Lymphatic Lymphatic Findings: no adenopathy Medical Decision Making Medical Records Medical records reviewed: Yes I reviewed the patient's medical records. Ivan Inquiry Pt receiving controlled substance: No Vital Signs: 07/17/22 16:22 07/17/22 17:00 Temperature 98.8 F Temperature Source Oral Pulse Rate 76 Pulse Rate [L
[2022-07-17 17:00] VITALS: BP 104/71; PULSE 76; O2SAT 99
[2022-07-17 17:24] LABS: Chloride 108 mmol/L (98-107); Sodium 135 mmol/L (136-145)
[2022-07-17 17:25] LABS: Basophils % 0.6 % (0.1-2.0); Eosinophils % 1.4 % (0.1-12.0); Hematocrit 41.4 % (37.0-47.0); Lymphocytes # 0.4 K/mm3 (0.7-4.5); Lymphocytes % 13.3 % (10-50); Mean Corpuscular HGB Conc 33.8 g/dL (31.8-35.4); Mean Corpuscular Hemoglobin 31.3 pg (27.0-31.2); Mean Corpuscular Volume 92.5 fl (81-99); Monocytes # 0.3 K/mm3 (0.1-1.0); Monocytes % 8.4 % (1.7-9.3); Neutrophils # 2.4 K/mm3 (1.8-7.8); Neutrophils % 76.3 % (37.0-80.0); Platelet Count 171 K/mm3 (142-424); Potassium 4.1 mmoL/L (3.5-5.1); Red Blood Count 4.47 M/mm3 (4.20-5.40); Red Cell Distribution Width 12.8 % (11.5-17.5); White Blood Count 3.1 K/mm3 (4.8-10.8)
[2022-07-17 17:27] LABS: Alanine Aminotransferase 16 U/L (12-78); Alkaline Phosphatase 44 U/L (38-126); Anion Gap 9.1 mEq/L (5-15); Aspartate Amino Transferase 21 U/L (14-36); Bilirubin,Total 0.2 mg/dl (0.2-1.3); Blood Urea Nitrogen 11 mg/dl (7-17); Carbon Dioxide 22 mmol/L (22.0-30.0); Creatinine Clearance Estimated 126 mL/min (50-200); Estimated Glomerular Filt Rate 117 ml/min (>60); GFR (African American) 141 ML/MIN (>60)
[2022-07-17 17:28] LABS: Albumin Level 3.8 g/dl (3.5-5.0); Albumin/Globulin Ratio 1.5 (1.1-1.8); Calcium 8.7 mg/dl (8.4-10.2); Globulin 2.6 g/dL (1.3-3.2); Glucose 81 mg/dl (74-100); Total Protein,Serum 6.4 g/dl (6.3-8.2)
[2022-07-17 17:30] VITALS: BP 101/67; PULSE 76; O2SAT 97
[2022-07-17 18:04] VITALS: BP 101/67; PULSE 76; RESP 18; TEMP 37.1; O2SAT 97
== END 2022-07-17 18:06 | disposition home or self-care (01) ==
PROVIDERS: Emergency Provider Emergency Medicine; PCP Internal Medicine Adolescent Medicine
DX: U07.1 COVID-19 (principal); J10.1 Influenza due to other identified influenza virus with other respiratory manifestations; G43.909 Migraine, unspecified, not intractable, without status migrainosus
CPT/HCPCS: 80053; 85025; 96365; 96375; 99284

== ENCOUNTER 2022-07-23 01:50 | Emergency (ER) | payer BC, SELFPAY ==
[2022-07-23 01:51] VITALS: BP 105/68; PULSE 57; RESP 18; TEMP 36.3; O2SAT 100; BMI 21.1
--- NOTE | 2022-07-23 03:05 | HMH.EDHA ---
Discharge Plan Disposition Patient Disposition: Home, Self-Care Chief Complaint: Headache Prescriptions Prescriptions: No Action ubrogepant 100 MG tablet 100 mg PO DAILY PRN (Reason: Migraine Headache) 30 Days Qty: 10 0RF azithromycin [azithromycin] 250 mg tablet 250 mg PO DIRECTED Qty: 6 0RF Rx Instructions: Take two (2) tablets on day #1, then one (1) tablet day #2 thru #5 oseltamivir [Tamiflu] 75 mg capsule 75 mg PO BID 5 Days Qty: 10 0RF Referrals Follow up/Referrals: Kareem Coyne MD [Primary Care Provider] - See instructions Clinical Impressions Clinical Impression: Migraine Instructions Patient Instructions: DI for Migraine Discharge ED Provider: Riccardo David Headache HPI General Chief Complaint: Headache Stated Complaint: has flu/covid; migraine Time Seen by Provider: 07/23/22 03:05 Mode of Arrival: Ambulatory Source of Information: Patient and Medical Record Limitations: No Limitations Description of Symptoms (Recalled from ER Triage Doc. by RN): pt c/o a migraine since friday pt stated that she had been diagnosed with covid and the flu 2 weeks agop and her headache wont go away History of Present Illness HPI Narrative: pt with bitemp negron with hx of migraine - no fever or rash and no trauma Complaint: migraine Onset (ago): hour(s) Location: temporal Severity: similar to previous episodes Quality: throbbing and similar to previous headaches Context: occurred at rest Related Data Previous Rx's Medication Instructions Recorded ubrogepant 100 mg tablet 100 mg PO DAILY PRN Migraine 02/10/21 Headache 30 days #10 tabs azithromycin 250 mg tablet 250 mg PO DIRECTED #6 tabs 07/17/22 oseltamivir 75 mg capsule (Tamiflu) 75 mg PO BID 5 days #10 caps 07/17/22 Allergies Allergy/AdvReac Type Severity Reaction Status Date / Time sumatriptan Allergy Verified 06/19/22 07:19 [facility] History Hepatitis A Screen Attestation statement:: This patient has been screened for Hepatitis A risk factors. I have reviewed the patient's past medical history: Yes Medical History: Denies: Cancer, Diabetes Mellitus Type 1, Diabetes Mellitus Type 2 or MRSA Other Medical History: Reports Other (herpes) Amputation: No Social History Smoking Status: Current every day smoker Tobacco Type: cigarettes # Packs/Day (cigarettes): 0 Alcohol Intake: never Occupational Status: employed Household Members: family Family Hx:: No significant family history PFSH PFSH Medical History Migraine Family History Other No significant family history Social History Smoking Status: Current every day smoker tobacco type: cigarettes packs per day: 0 alcohol intake: never current occupational status: employed Travel in the last 8 weeks: None household members: family ROS Obtained: Yes All systems reviewed & no additional complaints except as documented Physical Exam General General appearance: alert Head Head exam: normocephalic Eye Eye exam: Present PERRL and EOMI ENT ENT exam: Present mucous membranes moist Neck Neck exam: Present trachea midline; Absent meningismus Respiratory Respiratory exam: Absent respiratory distress Cardiovascular Cardiovascular exam: Present regular rate Abdominal Exam Abdominal exam: Present soft Extremities Exam Extremities exam: Present full ROM Neurological Exam Neurological exam: Present alert, oriented X3 and CN II-XII intact; Absent motor sensory deficit Psychiatric Psychiatric exam: Present normal affect Skin Skin exam: Absent rash Medical Decision Making Medical Records Medical records reviewed: Yes I reviewed the patient's medical records. Ivan Inquiry Pt receiving controlled substance: No Vital Signs: 07/23/22 01:51 Temperature 97.4 F L Temperature Source Oral Pulse Rat
--- NOTE | 2022-07-23 03:34 | PC.NURSE ---
Followed up with patient who states that her pain is much more controlled following the compazine and benadryl. md notified. Patients mother is at bedside and available to drive patient home due to the sedating effects of the medications
[2022-07-23 03:39] VITALS: BP 110/72; PULSE 62; RESP 18; TEMP 36.6; O2SAT 99
== END 2022-07-23 03:43 | disposition home or self-care (01) ==
PROVIDERS: Emergency Provider Emergency Medicine; PCP Internal Medicine Adolescent Medicine
DX: G43.909 Migraine, unspecified, not intractable, without status migrainosus (principal); F17.210 Nicotine dependence, cigarettes, uncomplicated; Z79.899 Other long term (current) drug therapy; Z86.19 Personal history of other infectious and parasitic diseases
CPT/HCPCS: 96361; 96374; 96375; 99284; J2405; J3475

== ENCOUNTER 2022-07-28 15:47 | Emergency (ER) | payer BC, SELFPAY ==
[2022-07-28 15:49] VITALS: BP 108/68; PULSE 70; RESP 17; TEMP 36.2; O2SAT 98; BMI 19.5
--- NOTE | 2022-07-28 15:55 | PC.NURSE ---
DR. CERVANTES AT BEDSIDE FOR EVALUATION
[2022-07-28 16:00] VITALS: BP 106/67; PULSE 59; O2SAT 98
[2022-07-28 16:20] LABS: Basophils # 0.1 K/mm3 (0-0.2); Basophils % 1.6 % (0.1-2.0); Chloride 109 mmol/L (98-107); Eosinophils % 0.8 % (0.1-12.0); Hematocrit 44.4 % (37.0-47.0); Hemoglobin 14.8 g/dL (12.2-16.2); Lymphocytes % 48.9 % (10-50); Mean Corpuscular HGB Conc 33.4 g/dL (31.8-35.4); Mean Platelet Volume 8.9 fl (7.4-10.4); Monocytes # 0.3 K/mm3 (0.1-1.0); Monocytes % 6.3 % (1.7-9.3); Neutrophils # 1.7 K/mm3 (1.8-7.8); Neutrophils % 42.4 % (37.0-80.0); Platelet Count 192 K/mm3 (142-424); Potassium 3.5 mmoL/L (3.5-5.1); Red Blood Count 4.77 M/mm3 (4.20-5.40); Red Cell Distribution Width 12.7 % (11.5-17.5); Sodium 136 mmol/L (136-145); White Blood Count 4.1 K/mm3 (4.8-10.8)
[2022-07-28 16:23] LABS: Alanine Aminotransferase 15 U/L (12-78); Albumin Level 4.2 g/dl (3.5-5.0); Albumin/Globulin Ratio 1.5 (1.1-1.8); Alkaline Phosphatase 50 U/L (38-126); Anion Gap 7.5 mEq/L (5-15); Aspartate Amino Transferase 19 U/L (14-36); Blood Urea Nitrogen 17 mg/dl (7-17); Carbon Dioxide 23 mmol/L (22.0-30.0); Creatinine Clearance Estimated 122 mL/min (50-200); Estimated Glomerular Filt Rate 117 ml/min (>60); GFR (African American) 141 ML/MIN (>60); Globulin 2.8 g/dL (1.3-3.2)
--- NOTE | 2022-07-28 16:23 | PC.NURSE ---
PT MEDICATED PER EMAR, NO NEEDS AT THIS TIME. AT BEDSIDE
[2022-07-28 16:24] LABS: Glucose 93 mg/dl (74-100)
[2022-07-28 16:31] VITALS: BP 104/62; PULSE 56; O2SAT 100
[2022-07-28 17:00] VITALS: BP 120/84; PULSE 52; O2SAT 99
--- NOTE | 2022-07-28 17:10 | PC.NURSE ---
ROUNDED ON PT, PT REPORTS FELLING BETTER THAN BEFORE
[2022-07-28 17:30] VITALS: BP 117/83; PULSE 53; O2SAT 100
[2022-07-28 17:45] VITALS: BP 117/83; PULSE 60; RESP 16; TEMP 36.8; O2SAT 100
--- NOTE | 2022-08-07 09:53 | HMH.EDGENADL ---
Discharge Plan Disposition Patient Disposition: Home, Self-Care Condition: Good Prescriptions Prescriptions: New ondansetron 4 mg tablet,disintegrating 4 mg PO DAILY Qty: 30 0RF No Action ubrogepant 100 MG tablet 100 mg PO DAILY PRN (Reason: Migraine Headache) 30 Days Qty: 10 0RF azithromycin [azithromycin] 250 mg tablet 250 mg PO DIRECTED Qty: 6 0RF Rx Instructions: Take two (2) tablets on day #1, then one (1) tablet day #2 thru #5 oseltamivir [Tamiflu] 75 mg capsule 75 mg PO BID 5 Days Qty: 10 0RF Referrals Follow up/Referrals: Kareem Coyne MD [Primary Care Provider] - See instructions Activity Restrictions/Add. Instructions Additional Instructions/Restrictions: Please follow up with your primary care physician in 1-2 days for further management. Please drink plenty of water and eat 3 balanced meals. You have also been prescibred zofran take as prescribed. Clinical Impressions Clinical Impression: Viral respiratory infection Instructions Patient Instructions: DI for H1N1 Influenza -- Adult, DI for COVID-19 (Suspected or Confirmed ) Print Language Print Language: Kyrgyz Discharge ED Provider: Barbra Park General Adult HPI General Chief complaint: Headache Stated complaint: WEAKNESS,VOMITING Time Seen by Provider: 07/28/22 15:48 Mode of Arrival: Ambulatory Limitations: No Limitations Description of Symptoms (Recalled from ER Triage Doc. by RN): PT C/O HEADACHE, VOMITING AND BODYACHES. TESTED POSTIVE FOR COVID AND FLU 07/17. HASN'T FELT ANY BETTER History of Present Illness HPI narrative: Miss Colón is a healthy 31 yo female presenting with headache, non bloody non bilious emesis and diffuse body aches. Diagnosed w/ covid 07/17. Patient reports symptoms have not improved. Patient is eating and drinking less, but normla uop. NO abdominal pain, bowel changes, or other urinary sx. No chest pain or dyspnea. complaint: headache, body aches, N/V Onset (ago): day(s) Related Data Previous Rx's Medication Instructions Recorded ubrogepant 100 mg tablet 100 mg PO DAILY PRN Migraine 02/10/21 Headache 30 days #10 tabs azithromycin 250 mg tablet 250 mg PO DIRECTED #6 tabs 07/17/22 oseltamivir 75 mg capsule (Tamiflu) 75 mg PO BID 5 days #10 caps 07/17/22 ondansetron 4 mg disintegrating 4 mg PO DAILY #30 tabs 07/28/22 tablet Allergies Allergy/AdvReac Type Severity Reaction Status Date / Time sumatriptan Allergy Verified 06/19/22 07:19 [facility] Disclaimer: The information contained in this section may have been updated after the patient was seen, as this information can be updated by other users. Medical History Migraine Family History Other No significant family history Social History Smoking Status: Current every day smoker tobacco type: cigarettes packs per day: 0 alcohol intake: never current occupational status: employed Travel in the last 8 weeks: None household members: family ROS Obtained: Yes All systems reviewed & no additional complaints except as documented Physical Exam General General appearance: alert and in no apparent distress Head Head exam: atraumatic and normocephalic Eye Eye exam: Present normal appearance and EOMI ENT ENT exam: Present normal exam and normal oropharynx Neck Neck exam: Present normal inspection and full ROM Chest Chest inspection: Present normal inspection and symmetric chest wall rise Respiratory Respiratory exam: Present normal lung sounds bilaterally Cardiovascular Cardiovascular exam: Present regular rate and normal heart sounds Abdominal Exam Abdominal exam: Present soft and normal bowel sounds Extremities Exam Extremities exam: Present normal inspection and full ROM Neurological Exam Neurological exam: Present alert and oriented X3 M
== END 2022-07-28 17:45 | disposition home or self-care (01) ==
PROVIDERS: Emergency Provider Student in an Organized Health Care Education/Training Program; PCP Internal Medicine Adolescent Medicine
DX: J98.8 Other specified respiratory disorders (principal); Z88.8 Allergy status to other drugs, medicaments and biological substances
CPT/HCPCS: 80053; 85025; 96365; 96367; 96375; 99284; J2405

== ENCOUNTER 2023-01-05 17:45 | Emergency (ER) | payer BC, SELFPAY ==
[2023-01-05 17:47] VITALS: BP 105/62; PULSE 63; RESP 16; TEMP 36.5; O2SAT 100; BMI 21.9
--- NOTE | 2023-01-05 18:17 | HMH.EDGENADL ---
Discharge Plan Disposition Patient Disposition: Home, Self-Care Prescriptions Prescriptions: No Action ubrogepant 100 MG tablet 100 mg PO DAILY PRN (Reason: Migraine Headache) 30 Days Qty: 10 0RF azithromycin [azithromycin] 250 mg tablet 250 mg PO DIRECTED Qty: 6 0RF Rx Instructions: Take two (2) tablets on day #1, then one (1) tablet day #2 thru #5 oseltamivir [Tamiflu] 75 mg capsule 75 mg PO BID 5 Days Qty: 10 0RF ondansetron 4 mg tablet,disintegrating 4 mg PO DAILY Qty: 30 0RF Referrals Follow up/Referrals: Kareem Coyne MD [Primary Care Provider] - See instructions Clinical Impressions Clinical Impression: Migraine Instructions Patient Instructions: DI for Migraine Discharge ED Provider: Ramón Encarnacion General Adult HPI General Chief complaint: Headache Stated complaint: vomiting numbness in legs and arms Time Seen by Provider: 01/05/23 18:00 History of Present Illness HPI narrative: Patient is a 32-year-old female with past medical history of migraines who presents with concern for migraine. She states that it feels like her similar migraines in the past but that it is a little bit more intense than normal. She says that it started earlier this morning. Has been very nauseous. Endorses photophobia and phonophobia. Denies any numbness or tingling into her extremities. Denies any abdominal pain. Related Data Previous Rx's Medication Instructions Recorded ubrogepant 100 mg tablet 100 mg PO DAILY PRN Migraine 02/10/21 Headache 30 days #10 tabs azithromycin 250 mg tablet 250 mg PO DIRECTED #6 tabs 07/17/22 oseltamivir 75 mg capsule (Tamiflu) 75 mg PO BID 5 days #10 caps 07/17/22 ondansetron 4 mg disintegrating 4 mg PO DAILY #30 tabs 07/28/22 tablet Allergies Allergy/AdvReac Type Severity Reaction Status Date / Time sumatriptan Allergy Verified 06/19/22 07:19 [facility] Disclaimer: The information contained in this section may have been updated after the patient was seen, as this information can be updated by other users. Medical History Migraine Family History Other No significant family history Social History Smoking Status: Current every day smoker tobacco type: cigarettes packs per day: 0 alcohol intake: never current occupational status: employed Travel in the last 8 weeks: None household members: family ROS Obtained: Yes All systems reviewed & no additional complaints except as documented Physical Exam General General appearance: alert and in no apparent distress Head Head exam: atraumatic, normocephalic and normal inspection Eye Eye exam: Present normal appearance and PERRL ENT ENT exam: Present normal exam, mucous membranes moist and normal external ear exam Neck Neck exam: Present normal inspection and trachea midline Chest Chest inspection: Present normal inspection and symmetric chest wall rise Respiratory Respiratory exam: Present normal lung sounds bilaterally; Absent respiratory distress Cardiovascular Cardiovascular exam: Present regular rate and normal rhythm Abdominal Exam Abdominal exam: Present soft; Absent distention, tenderness or guarding Extremities Exam Extremities exam: Present normal inspection; Absent edema Neurological Exam Neurological exam: Present alert and oriented X3 Psychiatric Psychiatric exam: Present normal affect and normal mood Skin Skin exam: Present warm, dry, intact and normal color Medical Decision Making Medical Records Medical records reviewed: Yes I reviewed the patient's medical records. Ivan Inquiry Pt receiving controlled substance: No Vital Signs: 01/05/23 17:47 01/05/23 18:30 01/05/23 19:00 Temperature 97.7 F Temperature Source Oral Pulse Rate 63 59 L Pulse Rate [Left] 63 Respiratory Rate 16 B
[2023-01-05 18:25] LABS: Basophils % 0.3 % (0.1-2.0); Eosinophils # 0.1 K/mm3 (0.0-0.4); Eosinophils % 2.1 % (0.1-12.0); Hematocrit 42.4 % (37.0-47.0); Hemoglobin 14.1 g/dL (12.2-16.2); Lymphocytes # 2.3 K/mm3 (0.7-4.5); Lymphocytes % 41.1 % (10-50); Mean Corpuscular HGB Conc 33.3 g/dL (31.8-35.4); Mean Corpuscular Hemoglobin 30.5 pg (27.0-31.2); Mean Corpuscular Volume 91.5 fl (81-99); Mean Platelet Volume 8.9 fl (7.4-10.4); Monocytes # 0.4 K/mm3 (0.1-1.0); Monocytes % 6.7 % (1.7-9.3); Neutrophils # 2.8 K/mm3 (1.8-7.8); Neutrophils % 49.8 % (37.0-80.0); Platelet Count 212 K/mm3 (142-424); Red Blood Count 4.63 M/mm3 (4.20-5.40); Red Cell Distribution Width 12.9 % (11.5-17.5); White Blood Count 5.7 K/mm3 (4.8-10.8)
[2023-01-05 18:30] VITALS: BP 97/64; PULSE 63; O2SAT 100
[2023-01-05 18:33] LABS: HCG Qualitative, Serum Negative (Negative)
[2023-01-05 18:34] LABS: Alanine Aminotransferase 21 U/L (12-78); Albumin Level 4.3 g/dl (3.5-5.0); Albumin/Globulin Ratio 1.4 (1.1-1.8); Alkaline Phosphatase 49 U/L (38-126); Anion Gap 18.4 mEq/L (5-15); Aspartate Amino Transferase 27 U/L (14-36); Bilirubin,Total 0.9 mg/dl (0.2-1.3); Blood Urea Nitrogen 12 mg/dl (7-17); Calcium 8.8 mg/dl (8.4-10.2); Carbon Dioxide 19 mmol/L (22.0-30.0); Chloride 104 mmol/L (98-107); Estimated Glomerular Filt Rate 116 ml/min (>60); GFR (African American) 140 ML/MIN (>60); Globulin 3.1 g/dL (1.3-3.2); Glucose 105 mg/dl (74-100); Potassium 3.4 mmoL/L (3.5-5.1); Sodium 138 mmol/L (136-145); Total Protein,Serum 7.4 g/dl (6.3-8.2)
--- NOTE | 2023-01-05 18:49 | PC.NURSE ---
rounded on pt nothing needed at this time,boyfriend at bedside
[2023-01-05 19:00] VITALS: BP 91/51; PULSE 59; O2SAT 97
[2023-01-05 19:30] VITALS: BP 93/62; PULSE 61; O2SAT 97
--- NOTE | 2023-01-05 19:40 | PC.NURSE ---
Rounded on pt. No needs or complaints voiced at this time.
[2023-01-05 20:00] VITALS: BP 93/60; PULSE 58; O2SAT 98
[2023-01-05 20:06] VITALS: BP 100/74; PULSE 64; RESP 16; TEMP 36.5; O2SAT 98
== END 2023-01-05 20:08 | disposition home or self-care (01) ==
PROVIDERS: Emergency Provider Student in an Organized Health Care Education/Training Program; PCP Internal Medicine Adolescent Medicine
DX: G43.909 Migraine, unspecified, not intractable, without status migrainosus (principal); R20.0 Anesthesia of skin; R11.10 Vomiting, unspecified; F17.210 Nicotine dependence, cigarettes, uncomplicated
CPT/HCPCS: 80053; 84703; 85025; 96361; 96374; 96375; 99284

== ENCOUNTER 2023-05-09 22:31 | Emergency (ER) | payer BC, SELFPAY ==
[2023-05-09 22:32] VITALS: BP 105/61; PULSE 64; RESP 18; TEMP 36.4; O2SAT 98; BMI 20.3
[2023-05-09 23:00] VITALS: BP 100/69; PULSE 61; O2SAT 99
--- NOTE | 2023-05-09 23:17 | HMH.EDGENADL ---
Discharge Plan Disposition Patient Disposition: Home, Self-Care Prescriptions Prescriptions: No Action ubrogepant 100 MG tablet 100 mg PO DAILY PRN (Reason: Migraine Headache) 30 Days Qty: 10 0RF azithromycin [azithromycin] 250 mg tablet 250 mg PO DIRECTED Qty: 6 0RF Rx Instructions: Take two (2) tablets on day #1, then one (1) tablet day #2 thru #5 oseltamivir [Tamiflu] 75 mg capsule 75 mg PO BID 5 Days Qty: 10 0RF ondansetron 4 mg tablet,disintegrating 4 mg PO DAILY Qty: 30 0RF Referrals Follow up/Referrals: Kareem Coyne MD [Primary Care Provider] - See instructions Activity Restrictions/Add. Instructions Additional Instructions/Restrictions: Please follow-up with your primary care provider. Please return to the emergency department if you develop any new or worsening symptoms or become concerned for your health. Clinical Impressions Clinical Impression: Migraine Qualifiers: Status migrainosus presence: with status migrainosus Intractability: not intractable Discharge ED Provider: Billy Ring Adult HPI General Chief complaint: Headache Stated complaint: headache Time Seen by Provider: 05/09/23 22:58 Mode of Arrival: Ambulatory Source of Information: Patient Limitations: No Limitations Description of Symptoms (Recalled from ER Triage Doc. by RN): Pt cc andreea,pt has hx of migraines, pt also complains of n/v with blurry vision and light and sound sensitivity. pt states the headache started today at 1000 in her right scientology area and pt states its achy and pressure like in nature and is progressing to across her frontal area History of Present Illness HPI narrative: 2-year-old female history of intermittent migraines presents with severe headache starting at 10 PM today. She took her abortive medication but it did not help. It is continued to worsen. She reports that it is located in her right scientology and is associated with blurry vision which is normal for her. She reports sensitivity to light and noise. Denies any recent trauma or illness. Related Data Previous Rx's Medication Instructions Recorded ubrogepant 100 mg tablet 100 mg PO DAILY PRN Migraine 02/10/21 Headache 30 days #10 tabs azithromycin 250 mg tablet 250 mg PO DIRECTED #6 tabs 07/17/22 oseltamivir 75 mg capsule (Tamiflu) 75 mg PO BID 5 days #10 caps 07/17/22 ondansetron 4 mg disintegrating 4 mg PO DAILY #30 tabs 07/28/22 tablet Allergies Allergy/AdvReac Type Severity Reaction Status Date / Time sumatriptan Allergy Verified 06/19/22 07:19 [facility] Disclaimer: The information contained in this section may have been updated after the patient was seen, as this information can be updated by other users. Medical History Migraine Family History Other No significant family history Social History Smoking Status: Current every day smoker tobacco type: cigarettes packs per day: 0 alcohol intake: never current occupational status: employed Travel in the last 8 weeks: None household members: family ROS Obtained: Yes All systems reviewed & no additional complaints except as documented Physical Exam General General appearance: alert Comment: Laying in bed, lights off, head covered by shirt, uncomfortable appearing Head Head exam: atraumatic and normocephalic Eye Eye exam: Present normal appearance, PERRL, EOMI and other (Photophobia noted) ENT ENT exam: Present normal oropharynx and normal external ear exam Neck Neck exam: Present normal inspection and full ROM Chest Chest inspection: Present normal inspection and symmetric chest wall rise; Absent tenderness Respiratory Respiratory exam: Present normal lung sounds bilaterally; Absent respiratory distress Cardiovascular Cardiovascular exam: Present regular rate and no
[2023-05-09 23:30] VITALS: BP 104/73; PULSE 63; O2SAT 99
[2023-05-10 00:53] VITALS: BP 107/77; PULSE 68; RESP 18; TEMP 36.4; O2SAT 98
== END 2023-05-10 00:55 | disposition home or self-care (01) ==
PROVIDERS: Emergency Provider Emergency Medicine; PCP Internal Medicine Adolescent Medicine
DX: G43.901 Migraine, unspecified, not intractable, with status migrainosus (principal); F17.210 Nicotine dependence, cigarettes, uncomplicated
CPT/HCPCS: 96361; 96372; 96374; 96375; 99284; J3475

== ENCOUNTER 2023-07-17 16:36 | Emergency (ER) | payer BC, SELFPAY ==
[2023-07-17 16:37] VITALS: BP 111/82; PULSE 91; RESP 18; TEMP 36.8; O2SAT 98; BMI 21.1
--- NOTE | 2023-07-17 16:48 | PC.NURSE ---
Dr. Garcia at BS for pt eval
--- NOTE | 2023-07-17 16:50 | HMH.EDGENADL ---
Discharge Plan Disposition Patient Disposition: Home, Self-Care Condition: Good Chief Complaint: Headache Prescriptions Prescriptions: No Action valacyclovir 500 mg tablet 500 mg PO DAILY Qty: 30 2RF ubrogepant 100 MG tablet 100 mg PO DAILY PRN (Reason: Migraine Headache) 30 Days Qty: 10 0RF Referrals Follow up/Referrals: Kareem Coyne MD [Primary Care Provider] - See instructions Clinical Impressions Clinical Impression: Migraine, COVID-19 Instructions Patient Instructions: DI for Migraine Discharge ED Provider: Rhianna Garcia General Adult HPI General Chief complaint: Headache Stated complaint: petar, fever, MACIAS Time Seen by Provider: 07/17/23 16:43 Mode of Arrival: Ambulatory Source of Information: Patient Limitations: No Limitations Description of Symptoms (Recalled from ER Triage Doc. by RN): Pt reports congestion, fever earlier today, chills, headache. Pt reports hx of migraines, took Ubrelvy at 1130 today- no relief. Pt reports light sensitivity r/t headache. History of Present Illness HPI narrative: Patient has a PMHx significant for migraines who presents to the ED with complaints of migraine in viral symptoms. Patient notes that over the past 24 hours, the patient has been having progressively worsening body aches, congestion, fevers, migraine. Patient notes a long history of migraines and notes that she took Ubrelvy today for her migraine, but no improvement of symptoms. Patient endorses nausea, sonophobia, photophobia. Patient decided come into the ED due to intractable migraine. Related Data Previous Rx's Medication Instructions Recorded ubrogepant 100 mg tablet 100 mg PO DAILY PRN Migraine 02/10/21 Headache 30 days #10 tabs valacyclovir 500 mg tablet 500 mg PO DAILY #30 tabs 06/05/23 Allergies Allergy/AdvReac Type Severity Reaction Status Date / Time sumatriptan Allergy Verified 06/05/23 15:33 [facility] Disclaimer: The information contained in this section may have been updated after the patient was seen, as this information can be updated by other users. Medical History (Updated 07/17/23 @ 17:39 by Rhianna Garcia MD) delivery delivered Migraine Surgical History (Updated 06/05/23 @ 15:36 by Jyoti Barber) H/O chest tube placement Family History Father Cancer lymphoma Sister Cancer lymphoma Brother Cancer brain, lung, lymphoma Mother Hypertension Social History Smoking Status: Current every day smoker tobacco type: cigarettes packs per day: 0 alcohol intake: never current occupational status: employed Travel in the last 8 weeks: None household members: family ROS Obtained: Yes All systems reviewed & no additional complaints except as documented Physical Exam General General appearance: alert and in no apparent distress Head Head exam: atraumatic, normocephalic and normal inspection Eye Eye exam: Present normal appearance, PERRL and EOMI; Absent scleral icterus or nystagmus ENT ENT exam: Present normal exam, mucous membranes moist and normal external ear exam Neck Neck exam: Present normal inspection, full ROM and trachea midline Chest Chest inspection: Present normal inspection and symmetric chest wall rise; Absent tenderness Respiratory Respiratory exam: Present normal lung sounds bilaterally; Absent respiratory distress, wheezes or accessory muscle use Cardiovascular Cardiovascular exam: Present regular rate, normal rhythm and normal heart sounds Abdominal Exam Abdominal exam: Present soft; Absent distention, tenderness, guarding, rebound, rigidity, trauma, ascites or pulsatile mass Extremities Exam Extremities exam: Present normal inspection and full ROM; Absent tenderness Back Exam Back exam: Present normal inspection and full ROM; Absent tendern
[2023-07-17 16:52] LABS: Influenza A, PCR Not Detected (NotDetected); Influenza B, PCR Not Detected (NotDetected)
[2023-07-17 17:14] LABS: Coronavirus 19, PCR Detected (NotDetected)
[2023-07-17 17:49] VITALS: BP 102/78; PULSE 88; RESP 20; TEMP 36.7; O2SAT 96
== END 2023-07-17 17:50 | disposition home or self-care (01) ==
PROVIDERS: Emergency Provider Emergency Medicine; PCP Internal Medicine Adolescent Medicine
DX: U07.1 COVID-19 (principal); M79.10 Myalgia, unspecified site; R50.9 Fever, unspecified; R11.0 Nausea; F17.210 Nicotine dependence, cigarettes, uncomplicated; G43.919 Migraine, unspecified, intractable, without status migrainosus
CPT/HCPCS: 87636; 96361; 96374; 96375; 99284; 99285

== ENCOUNTER 2023-08-08 16:34 | Emergency (ER) | payer BC, SELFPAY ==
[2023-08-08 16:35] VITALS: BP 111/71; PULSE 60; RESP 18; TEMP 36.6; O2SAT 98; BMI 21.1
--- NOTE | 2023-08-08 16:52 | HMH.EDGENADL ---
Discharge Plan Disposition Patient Disposition: Home, Self-Care Condition: Good Prescriptions Prescriptions: New prochlorperazine maleate [Compazine] 10 mg tablet 10 mg PO Q6H PRN (Reason: nausea and vomiting) 1 Days Qty: 20 0RF dexamethasone 6 mg tablet 6 mg PO Q24H 1 Days Qty: 1 0RF Rx Instructions: for up to 10 days No Action valacyclovir 500 mg tablet 500 mg PO DAILY Qty: 30 2RF ubrogepant 100 MG tablet 100 mg PO DAILY PRN (Reason: Migraine Headache) 30 Days Qty: 10 0RF Referrals Follow up/Referrals: Kareem Coyne MD [Primary Care Provider] - See instructions Activity Restrictions/Add. Instructions Additional Instructions/Restrictions: Call your family doctor to establish care for this visit to the emergency department and schedule follow-up within 48 hours to ensure improvement. If you have any worsening of your condition or any other concerning signs or symptoms, return to the emergency department or your primary care doctor for further evaluation. If you start to get refractory headaches, 1, 10 mg Compazine, one 6 mg dexamethasone, Tylenol 1000 mg every 6 hours (4 times daily) and ibuprofen 400 mg every 6 hours (4 times daily) as needed with food and water to prevent GI upset and kidney damage. Clinical Impressions Clinical Impression: Migraine Qualifiers: Migraine type: other Status migrainosus presence: with status migrainosus Intractability: intractable Qualified Code(s): G43.811 - Other migraine, intractable, with status migrainosus Discharge ED Provider: Aung Daniels General Adult [facility] General Chief complaint: Headache Stated complaint: h/a Time Seen by Provider: 08/08/23 16:36 Mode of Arrival: Ambulatory Source of Information: Patient Limitations: No Limitations Description of Symptoms (Recalled from ER Triage Doc. by RN): migraine started today; hx of migraines; no relief History of Present Illness HPI narrative: 32-year-old female history of migraine disorder presenting with migraine. Patient states she generally takes Ubrelvy for abortive migraines. Has taken Tylenol, Motrin, Ubrelvy. It does not help. Is been going on for a few hours. Sensitive to light and sound, has also been nauseated. This feels very similar to her previous migraines in terms of intensity and character and was not maximal intensity at onset, no neurologic deficits. Related Data Previous Rx's Medication Instructions Recorded ubrogepant 100 mg tablet 100 mg PO DAILY PRN Migraine 02/10/21 Headache 30 days #10 tabs valacyclovir 500 mg tablet 500 mg PO DAILY #30 tabs 06/05/23 dexamethasone 6 mg tablet 6 mg PO Q24H 1 day #1 tab 08/08/23 prochlorperazine maleate 10 mg 10 mg PO Q6H PRN nausea and 08/08/23 tablet (Compazine) vomiting 24 hours #20 tabs Allergies Allergy/AdvReac Type Severity Reaction Status Date / Time sumatriptan Allergy Verified 06/05/23 15:33 PF[facility] PFSH Disclaimer: The information contained in this section may have been updated after the patient was seen, as this information can be updated by other users. Medical History (Updated 08/08/23 @ 18:22 by Aung Daniels MD) delivery delivered Migraine Surgical History (Updated 06/05/23 @ 15:36 by Jyoti Barber) H/O chest tube placement Family History Father Cancer lymphoma Sister Cancer lymphoma Brother Cancer brain, lung, lymphoma Mother Hypertension Social History Smoking Status: Current every day smoker tobacco type: cigarettes packs per day: 0 alcohol intake: never current occupational status: employed Travel in the last 8 weeks: None household members: family ROS Obtained: Yes All systems reviewed & no additional complaints except as documented Physical Exam General General appearance: alert and in no a
[2023-08-08 17:00] VITALS: BP 103/72; PULSE 56; O2SAT 99
--- NOTE | 2023-08-08 18:16 | PC.NURSE ---
DR MARQUIS AT BEDSIDE TO REEVALUATE PT
--- NOTE | 2023-08-08 18:17 | PC.NURSE ---
patient lying and resing in bed; denies pain and n/v.
[2023-08-08 18:20] VITALS: BP 92/67; PULSE 67; RESP 16; TEMP -17.7; TEMP 0; O2SAT 99
== END 2023-08-08 18:25 | disposition home or self-care (01) ==
PROVIDERS: Emergency Provider Emergency Medicine; PCP Internal Medicine Adolescent Medicine
DX: G43.811 Other migraine, intractable, with status migrainosus (principal); F17.210 Nicotine dependence, cigarettes, uncomplicated
CPT/HCPCS: 96361; 96374; 96375; 99284; J0131

== ENCOUNTER 2024-06-12 02:57 | Emergency (ER) | payer BC, SELFPAY ==
[2024-06-12 02:59] VITALS: BP 119/93; PULSE 87; RESP 20; TEMP 36.6; O2SAT 100; BMI 22.4
--- NOTE | 2024-06-12 03:20 | HMH.EDGENADL ---
Discharge Plan Disposition Patient Disposition: Home, Self-Care Prescriptions Prescriptions: No Action valacyclovir 500 mg tablet See Rx Instructions .ROUTE .COMPLEX Qty: 30 0RF Dose Instruction: Take 1 tablet by mouth once daily Rx Instructions: Take 1 tablet by mouth once daily ubrogepant 100 MG tablet 100 mg PO DAILY PRN (Reason: Migraine Headache) 30 Days Qty: 10 0RF prochlorperazine maleate [Compazine] 10 mg tablet 10 mg PO Q6H PRN (Reason: nausea and vomiting) 1 Days Qty: 20 0RF dexamethasone 6 mg tablet 6 mg PO Q24H 1 Days Qty: 1 0RF Rx Instructions: for up to 10 days Referrals Follow up/Referrals: Manav Hall MD [Staff Physician] - See instructions Kareem Coyne MD [Primary Care Provider] - See instructions Hector Rosa MD [Staff Physician] - See instructions Activity Restrictions/Add. Instructions Additional Instructions/Restrictions: Please follow-up with your PCP and call to talk with our general surgery team about possible surgical management of your hemorrhoids. Please continue your medical management as discussed. Clinical Impressions Clinical Impression: Anal pain Hemorrhoids Qualifiers: Hemorrhoid type: fourth degree Qualified Code(s): K64.3 - Fourth degree hemorrhoids Print Language Print Language: Azeri Discharge ED Provider: Billy Ring Adult HPI General Chief complaint: PAIN Stated complaint: hemorrhoids Time Seen by Provider: 06/12/24 03:06 Mode of Arrival: Ambulatory Source of Information: Patient Limitations: No Limitations Description of Symptoms (Recalled from ER Triage Doc. by RN): Patient presented to the ED for pain related to a hemmorhoid. Patient stated she was constipated a few days ago and a hemmorhoid appeared. She saw Romelia Vu in [place] due to pain and she was told to rest at this time but came in because the pain is too much. She rates pain 8/10 and has not had any other difficult bowel movements. No bleeding. History of Present Illness HPI narrative: 33-year-old female presents for continued hemorrhoid pain. She reports that pain started on Friday but has been worsening. She saw her PCP earlier this week and has been using lidocaine, hydrocortisone cream, Preparation H, witch rosalina etc. without improvement in pain. She is reports currently 8 out of 10. She reports that she was constipated prior to the onset but has been having regular soft stools now. She denies fever, or other symptoms. Related Data Previous Rx's ?Medication ?Instructions ?Recorded ubrogepant 100 mg tablet 100 mg PO DAILY PRN Migraine 02/10/21 Headache 30 days #10 tabs dexamethasone 6 mg tablet 6 mg PO Q24H 1 day #1 tab 08/08/23 prochlorperazine maleate 10 mg 10 mg PO Q6H PRN nausea and 08/08/23 tablet (Compazine) vomiting 24 hours #20 tabs valacyclovir 500 mg tablet See Rx Instructions .Route 05/03/24 .COMPLEX #30 tabs Allergies Allergy/AdvReac Type Severity Reaction Status Date / Time sumatriptan Allergy Verified 06/05/23 15:33 [facility] Disclaimer: The information contained in this section may have been updated after the patient was seen, as this information can be updated by other users. Medical History (Updated 06/12/24 @ 03:22 by Billy Ring MD) delivery delivered Migraine Surgical History (Updated 06/05/23 @ 15:36 by FRAN Han) H/O chest tube placement Family History Father Cancer lymphoma Sister Cancer lymphoma Brother Cancer brain, lung, lymphoma Mother Hypertension Social History Smoking Status: Current every day smoker tobacco type: cigarettes packs per day: 0 alcohol intake: never current occupational status: employed Travel in the last 8 weeks: None household members: family Other Medical History Have you received the Flu Vaccine for this season: No Have you received the Pneumonia Vaccine: No ROS Obtained: Yes All systems reviewed & no additional complaints except as documented Physical Exam General General appearance: alert and in no apparent distress Head Head exam: atraumatic and normocephalic Eye Eye exam: Present normal appearance, PERRL and EOMI ENT ENT exam: Present normal oropharynx and normal external ear exam Neck Neck exam: Present normal inspection and full ROM Chest Chest inspection: Present normal inspection and symmetric chest wall rise; Absent tenderness Respiratory Respiratory exam: Present normal lung sounds bilaterally; Absent respiratory distress Cardiovascular Cardiovascular exam: Present regular rate and normal rhythm Abdominal Exam Abdominal exam: Present soft; Absent distention, tenderness or guarding Rectal Exam Rectal exam: Present hemorrhoids (Very large prolapsed hemorrhoids noted, no masses or bleeding noted on MARTA) Extremities Exam Extremities exam: Present normal inspection; Absent edema or joint swelling Back Exam Back exam: Present normal inspection; Absent tenderness Neurological Exam Neurological exam: Present alert and oriented X3; Absent motor sensory deficit Psychiatric Psychiatric exam: Present normal affect and normal mood Skin Skin exam: Present warm, dry and normal color Lymphatic Lymphatic Findings: no adenopathy Medical Decision Making Medical Records Medical records reviewed: Yes I reviewed the patient's medical records. Screening: Per USPSTF and CDC recommendations, given the prevalence of disease in our region, it is our hospital?s policy to screen for HIV and viral Hepatitis for all patients aged 18 and over and those with ongoing risk factors. Ivan Inquiry Pt receiving controlled substance: No Ivan was queried for this patient: No Vital Signs: 06/12/24 02:59 Temperature 97.9 F Temperature Source Oral Pulse Rate [Right Brachial] 87 Respiratory Rate 20 Blood Pressure [Right Arm] 119/93 H Blood Pressure Mean [Right Arm] 101 02 Sat by Pulse Oximetry 100 Oxygen Delivery Method Room Air Lab Data Lab results reviewed: Yes I reviewed the patient's lab results. Orders (Tests/Meds): ORDERS Category Date Time Status HIV (1&2) Antibody Rapid Stat Lab 06/12/24 03:16 Ordered Hep C Ab with Reflex to RNA Stat Lab 06/12/24 03:16 Ordered Medical Decision Narrative: 33-year-old female without significant past medical history presents for continued hemorrhoid pain for the last week. Exam is consistent with large prolapsed hemorrhoids. Patient is already on maximal medication therapy with lidocaine cream, hydrocortisone cream, Preparation H, witch rosalina etc. I do not have any additional therapy I can offer her at this point. Recommended that she call and speak with our surgeons offices on Friday to be seen and discuss surgical excision. Recommend she follow-up PCP. Procedures Risk/Benefits of Procedure(s) Were Explained: Yes Critical Care Critical Care Time Critical Care Time: No
[2024-06-12 03:34] VITALS: BP 122/90; PULSE 89; RESP 18; TEMP 36.6; O2SAT 99
== END 2024-06-12 03:36 | disposition home or self-care (01) ==
PROVIDERS: Emergency Provider Emergency Medicine; PCP Internal Medicine Adolescent Medicine
DX: K64.8 Other hemorrhoids (principal); K62.89 Other specified diseases of anus and rectum
CPT/HCPCS: 99282